=== PATIENT | male | born 1965 | race Caucasian/White ===

== ENCOUNTER 2016-10-31 13:47 | Emergency (ER) | payer OTHER ==
[2014-12-17 09:58] VITALS: BMI 24.4
[~2016-10-31 13:47] MED LIST: ACETAMINOPHEN325 MG PO; HYDROCODON-ACE1 EAC7 PO; LEXAPRO10 MG PO; NEURONTIN 300300 MG PO; OXYCODONE HCL5 MG PO; PARAFON FORTE500 MG PO; SPIRIVA18 MCG INH; SYMBICORT 16010.2 GM INH; XANAX0.25 MG PO
== END 2016-10-31 15:43 | disposition home or self-care (01) ==
LOC: D.ER 13:47
DX: R07.89 Other chest pain (principal)

== ENCOUNTER 2017-03-09 10:10 | Emergency (ER) | payer OTHER ==
[2014-12-17 09:58] VITALS: BMI 24.4
[2017-03-09 11:04] LABS: BASOPHILS 0.7 % (0-2); EOSINOPHILS 0.3 % (0-7); HEMATOCRIT 46.9 % (42.0-54.0); HEMOGLOBIN 16.1 g/dL (13.5-17.5); IMMATURE GRANULOCYTES 0.1 % (0-5); LYMPHOCYTES 13.1 % (15-50); MCH 31.8 pg (26.0-34.0); MCHC 34.3 g/dL (31.0-37.0); MCV 92.5 fL (80.0-100.0); MEAN PLATELET VOLUME 9.5 fL (7.4-10.4); MONOCYTES 12.7 % (2-11); NEUTROPHILS 73.1 % (40-80); PLATELET COUNT 303 10x3/uL (130-400); RBC 5.07 10x6/uL (4.20-6.10); RDW 12.6 % (11.5-14.5); WBC 7.2 10x3/uL (4.8-10.8)
[2017-03-09 11:32] LABS: ALBUMIN 3.7 g/dL (3.4-5.0); ANION GAP 14.9 mmol/L (8-16); BILIRUBIN - TOTAL 0.39 mg/dL (0.2-1.3); CALCIUM 9.5 mg/dL (8.5-10.1); CREATININE - SERUM 1.3 mg/dL (0.6-1.3); POTASSIUM - SERUM 3.9 mmol/L (3.5-5.1); PROTEIN - SERUM 7.6 g/dL (6.4-8.2)
== END 2017-03-09 13:53 | disposition home or self-care (01) ==
LOC: D.ER 10:10
PROVIDERS: Emergency Medicine
DX: J44.1 Chronic obstructive pulmonary disease with (acute) exacerbation (principal); R06.00 Dyspnea, unspecified; F17.200 Nicotine dependence, unspecified, uncomplicated

== ENCOUNTER 2019-07-22 16:41 | Inpatient (IN) | payer MEDICAID ==
[~2019-07-22] VITALS: Ht 180.3 cm; Wt 79.5 kg
[2019-07-22 17:29] LABS: BASOPHILS 0.1 % (0-2); EOSINOPHILS 0 % (0-7); HEMATOCRIT 48.4 % (42.0-54.0); HEMOGLOBIN 16.9 g/dL (13.5-17.5); IMMATURE GRANULOCYTES 0.1 % (0-5); LYMPHOCYTES 14.8 % (15-50); MCHC 34.9 g/dL (31.0-37.0); MCV 97.4 fL (80.0-100.0); MEAN PLATELET VOLUME 9.4 fL (7.4-10.4); MONOCYTES 5.7 % (2-11); NEUTROPHILS 79.3 % (40-80); PLATELET COUNT 356 10x3/uL (130-400); RBC 4.97 10x6/uL (4.20-6.10); RDW 12.8 % (11.5-14.5); WBC 10.9 10x3/uL (4.8-10.8)
[2019-07-22 17:36] LABS: APTT 47.9 SECONDS (22.8-39.4); INR 1.28 (0.85-1.17); PROTIME 15.4 SECONDS (11.6-15.0)
[2019-07-22 17:44] LABS: ALBUMIN 3.8 g/dL (3.4-5.0); ALKALINE PHOSPHATASE 57 U/L (46-116); ALT (SGPT) 22 U/L (10-68); CALC OSMOLALITY 283 mosm/kg (275-300); CALCIUM 9.9 mg/dL (8.5-10.1); CARBON DIOXIDE 23.8 mmol/L (21.0-32.0); CHLORIDE - SERUM 105 mmol/L (98-107); CREATININE - SERUM 1.3 mg/dL (0.6-1.3); GLUCOSE 116 mg/dL (74-106); POTASSIUM - SERUM 4.8 mmol/L (3.5-5.1); PROTEIN - SERUM 7.8 g/dL (6.4-8.2); SODIUM 141 mmol/L (136-145); UREA NITROGEN 17 mg/dL (7-18); eGFR NON AFRICAN AMERICAN 61 mL/min (90-120)
[2019-07-22 17:55] LABS: CKMB 2.1 U/L (0.0-3.6); CREATINE KINASE 137 UL (21-232); PRO BNP 134 pg/mL (0-125); TROPONIN-I < 0.017 ng/mL (0.000-0.060)
[2019-07-22 20:17] LABS: C-REACTIVE PROTEIN 1.4 mg/dL (0.0-0.9); THYROID STIMULATING HORMONE 0.44 uIU/mL (0.36-3.74)
--- NOTE | 2019-07-22 21:21 | NUR ---
PT IN CT. RADIOLOGY REPORTS PT C/O NAUSEA WHEN RECEIVING IV CONTRAST. VERBAL ORDER GIVEN FOR IV ZOFRAN 8MG.
--- NOTE | 2019-07-22 23:00 | NUR ---
PT CONTINUES TO COUGH, LANDON NAVAN NOTIFIED.
[2019-07-22] MEDS ORDERED: LUNESTA2 M1 PO (23:35)
[2019-07-22 23:42] VITALS: BP 127/75
[2019-07-22 23:45] LABS: CKMB 2.7 U/L (0.0-3.6); CREATINE KINASE 187 UL (21-232); PRO BNP 143 pg/mL (0-125)
[2019-07-22 23:46] LABS: TROPONIN-I < 0.017 ng/mL (0.000-0.060)
--- NOTE | 2019-07-22 23:49 | NUR ---
RECEIVED FROM ER VIA WHEELCHAIR, FAMILY AT BEDSIDE, HISTORY AND MEDS COMPLETE, BED IS LOW, SRX2, CALL LIGHT IN REACH, WILL CONTINUE PLAN OF CARE
[2019-07-23 03:50] VITALS: BP 113/71
[2019-07-23 05:19] VITALS: BP 113/71; BMI 24.4
[2019-07-23 08:00] VITALS: BP 124/82
--- NOTE | 2019-07-23 10:46 | NUR ---
ALERT AND ORIENTED X4. SITTING UP IN BED. REQUESTING PULMONARY CONSULT. PATIENT STATES, "I NEED SOMEONE TO GO DOWN MY THROAT AND SEE IF THEY CAN GET THIS MUCUS OUT. IT'S CHOKING ME." NOTIFY AKIRA ROSALES.
[2019-07-23 11:57] VITALS: Ht 180.3 cm; Wt 79.5 kg
[2019-07-23 16:00] VITALS: BP 104/65
--- NOTE | 2019-07-23 17:22 | NUR ---
ALERT AND ORIENTED X4. SITTING UP IN BED. FRIEND AT BEDSIDE. ECHO COMPLETE. VITALS STABLE. SINUS RYTHM ON TELEMETRY. CONTINUE PLAN OF CARE AND SAFETY PRECAUTIONS.
--- NOTE | 2019-07-23 19:00 | NUR ---
RECEIVED REPORT, WILL ASSUME CARE OF PT, DAY SHIFT NURSE VERONIQUE RESITED IV TO L. UPPER ARM, REQUESTING PHENERGAN AND TYLENOL, DENIES ANY OTHER NEEDS, BED IS LOW, SRX2, CALL LIGHT IN REACH, WILL CONTINUE PLAN OF CARE
[2019-07-23 20:00] VITALS: BP 107/62
[2019-07-24 00:35] VITALS: BP 102/59
[2019-07-24 00:43] LABS: COLOR YELLOW (YELLOW)
[2019-07-24 00:44] LABS: APPEARANCE CLEAR (CLEAR); BILIRUBIN NEGATIVE (NEGATIVE); GLUCOSE NEGATIVE (NEGATIVE); KETONE NEGATIVE (NEGATIVE); NITRITE NEGATIVE (NEGATIVE); PROTEIN NEGATIVE (NEGATIVE); UROBILINOGEN NORMAL (NORMAL)
[2019-07-24 00:45] LABS: BACTERIA NONE SEEN /hpf (NEGATIVE); EPITHELIAL CELLS 0-5 /hpf (0-5); RED CELLS - URINE 0-5 /hpf (0-5); WHITE CELLS - URINE 0-5 /hpf (NEGATIVE)
--- NOTE | 2019-07-24 03:54 | NUR ---
I have reviewed this patient and I concur with the Shift Assessment completed by the Licensed Practical Nurse today this shift.
[2019-07-24 04:24] VITALS: BP 99/69
[2019-07-24 06:13] LABS: BASOPHILS 0 % (0-2); EOSINOPHILS 0 % (0-7); HEMATOCRIT 45.4 % (42.0-54.0); HEMOGLOBIN 15.7 g/dL (13.5-17.5); IMMATURE GRANULOCYTES 0.2 % (0-5); LYMPHOCYTES 16.5 % (15-50); MCH 33.5 pg (26.0-34.0); MCHC 34.6 g/dL (31.0-37.0); MCV 96.8 fL (80.0-100.0); MEAN PLATELET VOLUME 9.3 fL (7.4-10.4); NEUTROPHILS 74.3 % (40-80); PLATELET COUNT 367 10x3/uL (130-400); RBC 4.69 10x6/uL (4.20-6.10); RDW 12.7 % (11.5-14.5); WBC 8.6 10x3/uL (4.8-10.8)
[2019-07-24 06:16] LABS: ANION GAP 12.6 mmol/L (8-16); CALCIUM 9.1 mg/dL (8.5-10.1); CREATININE - SERUM 1.2 mg/dL (0.6-1.3); MAGNESIUM - SERUM 2.2 mg/dL (1.8-2.4); POTASSIUM - SERUM 4.6 mmol/L (3.5-5.1)
--- NOTE | 2019-07-24 07:09 | NUR ---
RECIEVED REPORT. RESTING IN BED WITH EYES CLOSED. SINUS RYTHM ON TELEMETRY. NO SIGNS OF DISTRESS. CONTINUE PLAN OF CARE AND SAFETY PRECAUTIONS.
[2019-07-24 08:30] VITALS: BP 116/67
[2019-07-24] MEDS ORDERED: VIBRAMYCIN 100100 MG PO ×2 (13:39→14:14)
[2019-07-24] MEDS ORDERED: TESSALON PERLE100 MG PO (13:40)
[2019-07-24] MEDS ORDERED: PULMICORT0.5 MG/21 UPD (13:40)
[2019-07-24] MEDS ORDERED: MUCINEX DM ER1 EAC1 PO (13:40)
[2019-07-24] MEDS ORDERED: FLUTICASONE PRO16 GM NASAL (13:41)
[2019-07-24] MEDS ORDERED: PROTONIX40 MG PO (13:43)
[2019-07-24] MEDS ORDERED: STERAPRED DS 1010 MG PO (13:43)
[2019-07-24] MEDS ORDERED: ANORO ELLIPTA1 EACH INH (14:11)
[2019-07-24] MEDS ORDERED: IPRAT-ALBUT 0.5-3 ML UPD (14:13)
[2019-07-24] MEDS ORDERED: ALBUTEROL SULF8.5 GM INH (14:13)
[2019-07-24] MEDS ORDERED: STERAPRED DS 1210 MG PO (14:14)
--- NOTE | 2019-07-24 15:15 | MORECARE ---
CASE MANAGEMENT DISCHARGE SUMMARY PATIENT: FELIPA BARRETT UNIT: [id number] ADM DATE: 07/23/19 AGE: 54 : 61 SEX: M ROOM/BED: D.2126 AUTHOR: FEI SAAVEDRA PHYSICIAN: REFERRING PHYSICIAN: CORNELIA CHAVEZ MD DATE OF SERVICE: 07/24/19 Discharge Plan Patient Name: [facility]ELIP[facility] BARRETT [facility] [facility] 1965 Planned Disposition: Home Anticipated Discharge Date: 07/24/19 Discharge Date: Expected LOS: 1 Initial Reviewer: [email or web address] Initial Review Date: 07/24/2019 Generated: 07/24/19 4:15 pm DCPIA - Discharge Planning Initial Assessment Updated by [email or web address]: Liang Newsome on 07/24/19 3:13 pm * Is the patient Alert and Oriented? Yes * How many steps to enter\exit or inside your home? * PCP DR FRANCO * Pharm[facility] [place] * Preadmission Environment Home with Family * ADLs Independent * Equipment Nebulizer * Other Equipment NO MEDICAL EQUIPMENT PROVIDER PREFERENCE * List name and contact numbers for known caregivers / representatives who currently or will assist patient after discharge: MOOK GERBER, * Verbal permission to speak to the caregivers and representatives has been obtained from the patient. Yes * Community resources currently utilized None * Please name any agencies selected above. NONE * Additional services required to return to the preadmission environment? No * Can the patient safely return to the preadmission environment? Yes * Has this patient been hospitalized within the prior 30 days at any hospital? No Patient Name: FELIPA BARRETT Page [id number] at 1515 All edits/amendments must be made on the electronic document DICTATION DATE: 07/24/191513 LETTERPRESS SETTER: CHRIS 07/24/191513 RPT#: [id number] DC DATE: STATUS: ADM IN [facility] [address] [place] [address] END OF REPORT
--- NOTE | 2019-07-24 15:25 | MORECARE ---
CASE MANAGEMENT DISCHARGE SUMMARY PATIENT: FELIPA BARRETT UNIT: [id number] ADM DATE: 07/23/19 AGE: 54 : 61 SEX: M ROOM/BED: D.2126 AUTHOR: KERI,DOC PHYSICIAN: REFERRING PHYSICIAN: CORNELIA CHAVEZ MD DATE OF SERVICE: 07/24/19 Discharge Plan Patient Name: FELIPA BARRETT Facility: [facility]:[place] : 1965 Planned Disposition: Home Anticipated Discharge Date: 07/24/19 Discharge Date: Expected LOS: 1 Initial Reviewer: [email or web address] Initial Review Date: 07/24/2019 Generated: 07/24/19 4:25 pm Comments DCP- Discharge Planning Updated by [email or web address]: Liang Newsome on 07/24/19 2:[address] Patient Name: FELIPA BARRETT Admission Status: ER Accout number: [id number] Admission Date: 07-23-2019 : 1965 Admission Diagnosis: Attending: KATHY, Current LOS: 1 Anticipated DC Date: 07-24-2019 Planned Disposition: Home Primary Insurance: MEDICAID [place] PENDING Discharge Planning Comments: CM MET WITH PT IN ROOM TO DISCUSS DISCHARGE PLANNING AND NEEDS. FELIPA BARRETT provided verbal consent to discuss current and ongoing needs with/in the presence of: TANVIR DELVALLE. PT REPORTS LIVING AT HOME INDEPENDENTLY WITH HIS MOOK. PT HAS NEBULIZER WITH NO MEDICAL EQUIPMENT PROVIDER PREFERENCE. PT HAS NO OUTSIDE SERVICES ASSISTING IN THE HOME. CM DISCUSSED AVAILABILITY OF HOME HEALTH, REHAB SERVICES AND MEDICAL EQUIPMENT. PT DENIES DISCHARGE NEEDS, REPORTS HIS MOOK WILL PICK HIM UP FOR DISCHARGE HOME TODAY. LAST TURNER NURSE NOTIFIED. Restorative Aide: Liang Newsome DCPIA - Discharge Planning Initial Assessment Updated by [email or web address]: Liang Newsome on 07/24/19 3:13 pm * Is the patient Alert and Oriented? Yes * How many steps to enter\exit or inside your home? * PCP DR FRANCO * Pharmacy [facility] [place] * Preadmission Environment Home with Family * ADLs Independent * Equipment Nebulizer * Other Equipment NO MEDICAL EQUIPMENT PROVIDER PREFERENCE * List name and contact numbers for known caregivers / representatives who currently or will assist patient after discharge: MOOK GERBER, * Verbal permission to speak to the caregivers and representatives has been obtained from the patient. Yes * Community resources currently utilized None * Please name any agencies selected above. NONE * Additional services required to return to the preadmission environment? No * Can the patient safely return to the preadmission environment? Yes * Has this patient been hospitalized within the prior 30 days at any hospital? No Last DP export: 07/24/19 2:15 p Patient Name: FELIPA BARRETT Page [id number] at 1525 All edits/amendments must be made on the electronic document DICTATION DATE: 07/24/19 152 PAPERBOARD BOX MAKER: CHRIS 07/24/191523 RPT#: [id number] DC DATE: STATUS: ADM IN [facility] [address] [place] [address] END OF REPORT
--- NOTE | 2019-07-24 16:01 | NUR ---
ALERT AND ORIENTED X4. SITTING UP IN BED. FRIEND AT BEDSIDE. DC LT UPPER ARM IV TIP INTACT. DISCHARGE INSTRUCTIONS GIVEN VERBALLY AND WRITTEN. DISCHARGE PAPERS SIGNED ON CHART. ESCORT TO RIDE VIA WHEELCHAIR. REMAINS FREE FROM INJURY.
--- NOTE | 2019-07-26 11:08 | EC ---
PATIENT:FELIPA BARRETT DATE OF SERVICE: 07/23/19 SEX: M MEDICAL RECORD: [id number] DATE OF : 61 LOCATION:D.M2 D.212 AGE OF PATIENT: 54 ADMISSION DATE: 07/23/19 REFERRING PHYSICIAN: INTERPRETING PHYSICIAN: RADHA BENITEZ MD ECHOCARDIOGRAM REPORT ECHO CHARGES 4 ECHO COMPLETE Date: 07/23/19 CLINICAL DIAGNOSIS: DYSPNEA ECHOCARDIOGRAPHIC MEASUREMENTS (adult normal given) AC root (d.<3.7cm) 3.6 cm LV Septum d (<1.2 cm> 1.3 cm Valve Excursion 2.2 cm LV Septum (systole) 1.7 cm Left Atria (s.<4.0cm> 3.2 cm LVPW d(<1.2cm) 1.2 cm RV (d.<2.3cm) 2.2 cm LVPW (sytole) 1.6 cm LV diastole(<5.6CM) 3.1 cm MV E-F(>70mm/sec) cm LV systole 1.7 cm LVOT Diameter 3.2 cm MV exc.(>10mm) cm Est.ejection fraction (50-75%) % DOPPLER: LVIT cm/sec A 45.0 cm/sec E 100 cm/sec LA cm/sec RVSP 17.0 mmHg LVOT 104 cm/sec AOP1/2T m/s Asc. Ao 112 cm/sec RVOT 100 cm/sec RA cm/sec PA 108 cm/sec AV Gradient Peak 5.0 mmHg AV Mean 2.4 mmHg AV Area 3.2 cm MV Gradient Peak 4.9 mmHg MV Mean 1.3 mmHg MV Area cm COMMENTS: Consumer Loan Underwriter: 1 OSWALDO CURRYOE Licensed Optician: 3 Dr. Martines TAPE# PACS Pericardial Effusion N DATE OF SERVICE: Adequate 2D, color flow, spectral Doppler, and M-Mode. Mild LVH. LV internal dimensions are normal. Wall motion is normal. EF is greater than or equal to 55%. Aortic valve is tricuspid. No evidence of stenosis by Doppler interrogation. Left atrium is normal at 3.2 cm. Mitral valve shows no prolapse. Trace MR. Right-sided chambers are grossly normal. Trace TR. TRANSINT:[id number] Voice Confirmation ID: [id number] DOCUMENT ID: [id number] ECHOCARDIOGRAM REPORT [id number] ARNOLDFELIPA Molina GREGORY A MD at 1108 CC: [id number] DICTATION DATE: 07/24/19 1045 CERTIFIED MEDICAL AIDE: 07/24/19 1133 DIS IN 07/24/19 [facility] [address] [place] [address]
[2019-07-26 14:09] LABS: PROCALCITONIN 0.07 ng/mL (0.00-0.08)
== END 2019-07-24 16:03 | disposition home or self-care (01) | DRG 189 ==
LOC: D.ER 16:41 → OBSVTIME 22:42 → D.M2 22:42
PROVIDERS: Family Medicine; Internal Medicine Pulmonary Disease; ADMIT Family Medicine; ATTEND Family Medicine
DX: J96.01 Acute respiratory failure with hypoxia (principal); F17.213 Nicotine dependence, cigarettes, with withdrawal; J43.9 Emphysema, unspecified; R91.8 Other nonspecific abnormal finding of lung field; J20.9 Acute bronchitis, unspecified

== ENCOUNTER → 2019-08-30 12:53 | Outpatient (CLI) | payer MEDICAID ==
[2019-07-23 11:57] VITALS: BMI 24.4
[~2019-08-30 12:53] MED LIST changes: +ALBUTEROL SULF8.5 GM INH; +ANORO ELLIPTA1 EACH INH; +FLUTICASONE PRO16 GM NASAL; +IPRAT-ALBUT 0.5-3 ML UPD; +LUNESTA2 M1 PO; +MUCINEX DM ER1 EAC1 PO; +PROTONIX40 MG PO; +PULMICORT0.5 MG/21 UPD; +STERAPRED DS 1010 MG PO; +STERAPRED DS 1210 MG PO; +TESSALON PERLE100 MG PO; +VIBRAMYCIN 100100 MG PO
== END | disposition home or self-care (01) ==
LOC: D.RT 08-17 13:00
PROVIDERS: ATTEND Internal Medicine Pulmonary Disease
DX: J44.1 Chronic obstructive pulmonary disease with (acute) exacerbation (principal); J43.8 Other emphysema

== ENCOUNTER 2019-12-25 08:54 | Outpatient (CLI) | payer OTHER ==
[~2019-12-25] VITALS: Ht 180.3 cm; Wt 63.6 kg
[2019-12-25 09:22] LABS: ANION GAP 8.1 mmol/L (8-16); CALCIUM 9.3 mg/dL (8.5-10.1); CARBON DIOXIDE 30.4 mmol/L (21.0-32.0); CREATININE - SERUM 1.2 mg/dL (0.6-1.3); POTASSIUM - SERUM 4.5 mmol/L (3.5-5.1)
[2019-12-25 09:35] LABS: APTT 30.3 SECONDS (22.8-39.4); INR 0.97 (0.85-1.17); PROTIME 12.8 SECONDS (11.6-15.0)
[2019-12-25 09:39] LABS: BASOPHILS 1.3 % (0-2); EOSINOPHILS 2.8 % (0-7); HEMATOCRIT 46.7 % (42.0-54.0); HEMOGLOBIN 16.2 g/dL (13.5-17.5); IMMATURE GRANULOCYTES 0.1 % (0-5); LYMPHOCYTES 35.8 % (15-50); MCH 32.7 pg (26.0-34.0); MCHC 34.7 g/dL (31.0-37.0); MCV 94.2 fL (80.0-100.0); MEAN PLATELET VOLUME 9.1 fL (7.4-10.4); MONOCYTES 7.6 % (2-11); NEUTROPHILS 52.4 % (40-80); PLATELET COUNT 392 10x3/uL (130-400); RBC 4.96 10x6/uL (4.20-6.10); WBC 7.7 10x3/uL (4.8-10.8)
[2019-12-25 10:02] VITALS: BP 135/88; Ht 180.3 cm; Wt 63.6 kg
--- NOTE | 2019-12-25 13:59 | NUR ---
1355 IV REMOVED AND PT D/C FROM UNIT
== END 2019-12-25 13:57 | disposition home or self-care (01) ==
LOC: D.SP 08:54 → D.CT 11:00 → D.SP 13:57
PROVIDERS: General Practice; ATTEND Internal Medicine Pulmonary Disease
DX: R91.8 Other nonspecific abnormal finding of lung field (principal); Z53.9 Procedure and treatment not carried out, unspecified reason

== ENCOUNTER → 2020-02-27 11:21 | Outpatient (CLI) | payer OTHER ==
[2019-12-25 10:02] VITALS: BMI 19.5
== END | disposition home or self-care (01) ==
LOC: D.CT 11:21
PROVIDERS: ATTEND Internal Medicine Cardiovascular Disease
DX: J43.9 Emphysema, unspecified (principal); J44.9 Chronic obstructive pulmonary disease, unspecified